=== PATIENT | male | born 1955 | race Caucasian/White ===

== ENCOUNTER 2017-07-17 08:44 | Outpatient (CLI) | payer MEDICAID ==
[~2017-07-17 08:44] MED LIST: CLIN-80 PO; FOLI1TAB16 PO; IBUP200C5 PO; LACT1CAP67 PO; LISI1TAB9 PO; LORA1TAB PO; METH2.5T55 PO; OMEG500C PO; WALKERFR
[2017-07-17 09:16] LABS: ABG BASE EXCESS -1.6 mmol/L (-2.0-3.0); ABG OXYGEN SATURATION 95.4 % (95-98); ABG PCO2 (T) 29.8 mmHg (35.0-48.0); ABG PH (T) 7.465 (7.350-7.450); ABG PO2 (T) 74.6 mmHg (83-108); ALLEN'S TEST Positive; FCOHb 0.6 % (0.5-1.5); FMetHb 0.1 % (0.3-1.12); FO2Hb 94.7 % (94-100); TOTAL HEMOGLOBIN 14.8 G/dl (14.0-18.0)
== END 2017-07-17 23:59 | disposition home or self-care (01) ==
LOC: RT 08:44
PROVIDERS: ATTEND Family Medicine
DX: R06.09 Other forms of dyspnea (principal); F17.200 Nicotine dependence, unspecified, uncomplicated
CPT/HCPCS: 36600; 82803; 85018; 94010; A6255; A6257

== ENCOUNTER 2018-01-24 05:42 | Emergency (ER) | payer MEDICAID ==
[~2018-01-24] VITALS: Ht 180.3 cm; Wt 82.0 kg
[~2018-01-24 05:42] MED LIST changes: -CLIN-80 PO; +CLIN300C85 PO
[2018-01-24 05:45] VITALS: BP 103/66
[2018-01-24] MEDS ORDERED: ketorolac trometh. 30mg/ml inj. IM ONE (07:20)
[2018-01-24 07:31] LABS: CLARITY,URINE CLEAR (Clear); COLOR,URINE YELLOW (Yellow); GLUCOSE, URINE NEGATIVE (Neg); KETONES,URINE NEGATIVE (Neg); LEUKOCYTE ESTERASE ,URINE NEGATIVE (Neg); NITRITES, URINE NEGATIVE (Neg); OCCULT BLOOD,URINE TRACE-LYSED (Neg); PH,URINE 5.5 (4.8-8.0); PROTEIN,URINE NEGATIVE (Neg); UROBILINOGEN,URINE 0.2 E.U/dL (0.2-1.0)
[2018-01-24 07:32] LABS: UA COLLECTION TYPE VOIDED
[2018-01-24 08:09] LABS: MUCUS STRANDS MODERATE /LPF (Neg); SQUAMOUS EPITHELIAL CELL,UR MODERATE /LPF (FEW)
[2018-01-24 08:12] LABS: BACTERIA,URINE FEW /HPF (Neg); RBC,URINE 0-2 /HPF (0-2); WBC,URINE 0-4 /HPF (0-4)
== END 2018-01-24 08:55 | disposition home or self-care (01) ==
LOC: ER 05:43
DX: S39.012A Strain of muscle, fascia and tendon of lower back, initial encounter (principal); I10 Essential (primary) hypertension; G89.29 Other chronic pain; R10.9 Unspecified abdominal pain; Z88.1 Allergy status to other antibiotic agents; Z88.8 Allergy status to other drugs, medicaments and biological substances; Z88.6 Allergy status to analgesic agent; Z79.899 Other long term (current) drug therapy; Z87.442 Personal history of urinary calculi; X58.XXXA Exposure to other specified factors, initial encounter; Y93.89 Activity, other specified; Y92.89 Other specified places as the place of occurrence of the external cause; Y99.8 Other external cause status
CPT/HCPCS: 81001; 96372; 99283; J1885

== ENCOUNTER 2018-07-08 18:38 | Emergency (ER) | payer MEDICAID ==
[~2018-07-08] VITALS: Ht 180.3 cm; Wt 93.2 kg
[~2018-07-08 18:38] MED LIST changes: +CLIN-96 PO; -CLIN300C85 PO
[2018-07-08 19:33] LABS: BASOPHILS # (AUTO) 0.1 X10'3 (0-0.2); BASOPHILS % (AUTO) 0.9 % (0-1); EOSINOPHILS # (AUTO) 0.1 X10'3 (0-0.9); EOSINOPHILS % (AUTO) 1.5 % (0-6); HEMATOCRIT 40.5 % (42.0-52.0); HEMOGLOBIN 13.4 g/dl (14.0-17.9); LYMPHOCYTES # (AUTO) 1.6 X10'3 (1.1-4.8); LYMPHOCYTES % (AUTO) 24.9 % (21-51); MEAN CORPUSCULAR HEMOGLOBIN 29.4 PG (27.0-31.0); MEAN CORPUSCULAR HGB CONC 33.1 g/dL (33.0-36.5); MEAN CORPUSCULAR VOLUME 88.9 FL (78-98); MEAN PLATELET VOLUME 8.9 FL (7.4-10.4); MONOCYTES # (AUTO) 0.4 X10'3 (0-0.9); MONOCYTES % (AUTO) 5.4 % (2-12); NEUTROPHILS # (AUTO) 4.4 X10'3 (1.8-7.7); NEUTROPHILS % (AUTO) 67.3 % (42-75); PLATELET COUNT 193 X10'3 (140-440); RED BLOOD COUNT 4.55 X10'6 (4.70-6.10); RED CELL DISTRIBUTION WIDTH 15.5 % (11.5-14.5); WHITE BLOOD COUNT 6.6 X10'3 (4.5-11.0)
[2018-07-08 19:43] LABS: ALANINE AMINOTRANSFERASE 19 U/L (12-78); ALBUMIN 3.6 G/DL (3.4-5.0); ALBUMIN/GLOBULIN RATIO 1.1 (1.1-1.5); ALKALINE PHOSPHATASE 75 IU/L (46-116); ANION GAP 8 (8-16); ASPARTATE AMINO TRANSFERASE 12 U/L (10-37); BILIRUBIN,TOTAL 0.3 MG/DL (0.1-1.0); BLOOD UREA NITROGEN 21 MG/DL (7-18); BUN/CREATININE RATIO 16.2 (5.4-32.0); CHLORIDE 105 MMOL/L (99-107); GLUCOSE 90 MG/DL (70-104); POTASSIUM 4.2 MMOL/L (3.5-5.1); SODIUM 140 MMOL/L (135-145); TOTAL CARBON DIOXIDE 26.8 MMOL/L (24-32); TOTAL PROTEIN 6.8 G/DL (6.4-8.2); eGFR 56 ML/MIN
[2018-07-08] MEDS ORDERED: diphenhydrAMINE 50 mg/ml inj IV ONE (20:35)
[2018-07-08] MEDS ORDERED: normal saline 1000ML IV soln IVB ONE (20:35)
[2018-07-08] MEDS ORDERED: ondansetron/PF 4mg/2ml inj IV ONE (20:35)
[2018-07-08] MEDS ORDERED: meclizine 12.5mg tablet PO ONE (21:40)
[2018-07-08] MEDS ORDERED: dexamethasone sod phosphate 10mg/ml inj IV STA (21:43)
[2018-07-08] MEDS ORDERED: MECL-111 PO (21:44)
[2018-07-08] MEDS ORDERED: LORazepam 2 mg/ml vial IV ONE (21:45)
[2018-07-08] MEDS ORDERED: proCHLORperazine 10 MG/2 ml inj IV ONE (21:45)
[2018-07-08 22:23] VITALS: BP 121/73
== END 2018-07-08 22:25 | disposition home or self-care (01) ==
LOC: ER 18:53
DX: R42 Dizziness and giddiness (principal); R51 Headache; I10 Essential (primary) hypertension; M54.2 Cervicalgia; G89.29 Other chronic pain; Z86.19 Personal history of other infectious and parasitic diseases; Z87.442 Personal history of urinary calculi; Z98.890 Other specified postprocedural states; Z88.1 Allergy status to other antibiotic agents; Z88.5 Allergy status to narcotic agent; Z88.8 Allergy status to other drugs, medicaments and biological substances; Z79.899 Other long term (current) drug therapy
CPT/HCPCS: 36415; 70450; 70486; 71045; 80053; 84484; 85025; 93005; 96361; 96374; 96375; 99284; J0780; J1100; J1200; J2060; J2405; J7030; J8597

== ENCOUNTER 2019-04-11 08:27 | Emergency (ER) | payer MEDICAID ==
[~2019-04-11] VITALS: Ht 180.3 cm; Wt 98.0 kg
[~2019-04-11 08:27] MED LIST changes: +CLIN-90 PO; -CLIN-96 PO; +LISI1TAB32 PO; -LISI1TAB9 PO; +MECL-111 PO
[2019-04-11 09:30] LABS: CLARITY,URINE CLEAR (Clear); COLOR,URINE STRAW (Yellow); GLUCOSE, URINE NEGATIVE (Neg); KETONES,URINE NEGATIVE (Neg); LEUKOCYTE ESTERASE ,URINE NEGATIVE (Neg); NITRITES, URINE NEGATIVE (Neg); OCCULT BLOOD,URINE TRACE-LYSED (Neg); PH,URINE 5.5 (4.8-8.0); PROTEIN,URINE NEGATIVE (Neg); UROBILINOGEN,URINE 0.2 E.U/dL (0.2-1.0)
[2019-04-11 09:31] LABS: UA COLLECTION TYPE CLN CATCH MIDSTREAM
[2019-04-11 09:55] VITALS: BP 127/68
[2019-04-11 10:09] LABS: MUCUS STRANDS FEW /LPF (Neg); SQUAMOUS EPITHELIAL CELL,UR FEW /LPF (FEW)
[2019-04-11 10:10] LABS: WBC,URINE 0-4 /HPF (0-4)
[2019-04-11 10:11] LABS: BACTERIA,URINE NONE SEEN /HPF (Neg); RBC,URINE 0-2 /HPF (0-2)
== END 2019-04-11 09:57 | disposition home or self-care (01) ==
LOC: ER 08:28
DX: K46.9 Unspecified abdominal hernia without obstruction or gangrene (principal); I10 Essential (primary) hypertension; G89.29 Other chronic pain; Z86.19 Personal history of other infectious and parasitic diseases; Z87.442 Personal history of urinary calculi; Z98.890 Other specified postprocedural states; Z88.1 Allergy status to other antibiotic agents; Z88.5 Allergy status to narcotic agent; Z88.8 Allergy status to other drugs, medicaments and biological substances; Z79.899 Other long term (current) drug therapy
CPT/HCPCS: 81001; 99283

== ENCOUNTER 2019-10-08 18:09 | Emergency (ER) | payer MEDICAID ==
[~2019-10-08] VITALS: Ht 180.3 cm; Wt 97.7 kg
[~2019-10-08 18:09] MED LIST changes: -CLIN-90 PO; +CLIN-97 PO; -MECL-111 PO; +MECL-159 PO
[2019-10-08 20:33] LABS: BASOPHILS # (AUTO) 0.1 X10'3 (0-0.2); BASOPHILS % (AUTO) 0.9 % (0-1); EOSINOPHILS # (AUTO) 0.1 X10'3 (0-0.9); EOSINOPHILS % (AUTO) 0.7 % (0-6); HEMATOCRIT 45.7 % (42.0-52.0); HEMOGLOBIN 15.5 g/dl (14.0-17.9); LYMPHOCYTES # (AUTO) 1.6 X10'3 (1.1-4.8); LYMPHOCYTES % (AUTO) 18.4 % (21-51); MEAN CORPUSCULAR HEMOGLOBIN 31.1 PG (27.0-31.0); MEAN CORPUSCULAR HGB CONC 33.9 g/dL (33.0-36.5); MEAN CORPUSCULAR VOLUME 91.5 FL (78-98); MEAN PLATELET VOLUME 9.6 FL (7.4-10.4); MONOCYTES # (AUTO) 0.9 X10'3 (0-0.9); MONOCYTES % (AUTO) 10.3 % (2-12); NEUTROPHILS % (AUTO) 69.7 % (42-75); PLATELET COUNT 151 X10'3 (140-440); WHITE BLOOD COUNT 8.6 X10'3 (4.5-11.0)
[2019-10-08 20:34] LABS: CLARITY,URINE SLIGHTLY CLOUDY (Clear); COLOR,URINE YELLOW (Yellow); GLUCOSE, URINE NEGATIVE (Neg); KETONES,URINE TRACE mg/dl (Neg); LEUKOCYTE ESTERASE ,URINE NEGATIVE (Neg); NITRITES, URINE NEGATIVE (Neg); OCCULT BLOOD,URINE NEGATIVE (Neg); PH,URINE 5.5 (4.8-8.0); PROTEIN,URINE TRACE mg/dl (Neg)
[2019-10-08 20:36] LABS: UA COLLECTION TYPE CLN CATCH MIDSTREAM
[2019-10-08 20:47] LABS: ALANINE AMINOTRANSFERASE 16 U/L (12-78); ALBUMIN 3.5 G/DL (3.4-5.0); ALBUMIN/GLOBULIN RATIO 0.9 (1.1-1.5); ALKALINE PHOSPHATASE 70 IU/L (46-116); ANION GAP 9 (8-16); ASPARTATE AMINO TRANSFERASE 19 U/L (10-37); BILIRUBIN,TOTAL 0.6 MG/DL (0.1-1.0); BLOOD UREA NITROGEN 26 MG/DL (7-18); BUN/CREATININE RATIO 13.7 (5.4-32.0); CALCIUM 8.7 MG/DL (8.5-10.1); CHLORIDE 107 MMOL/L (99-107); GLUCOSE 100 MG/DL (70-104); POTASSIUM 3.8 MMOL/L (3.5-5.1); SODIUM 142 MMOL/L (135-145); TOTAL CARBON DIOXIDE 25.7 MMOL/L (24-32); TOTAL PROTEIN 7.5 G/DL (6.4-8.2); eGFR 36 ML/MIN
[2019-10-08] MEDS ORDERED: AZIT-72 PO (21:11)
[2019-10-08 21:18] VITALS: BP 129/76
[2019-10-08 22:08] LABS: MUCUS STRANDS MANY /LPF (Neg); SQUAMOUS EPITHELIAL CELL,UR MODERATE /LPF (FEW)
[2019-10-08 22:09] LABS: BACTERIA,URINE FEW /HPF (Neg); RBC,URINE 0-2 /HPF (0-2)
== END 2019-10-08 21:16 | disposition home or self-care (01) ==
LOC: ER 18:09
DX: J18.9 Pneumonia, unspecified organism (principal); R50.9 Fever, unspecified; R06.02 Shortness of breath; I12.9 Hypertensive chronic kidney disease with stage 1 through stage 4 chronic kidney disease, or unspecified chronic kidney disease; N18.9 Chronic kidney disease, unspecified; M19.90 Unspecified osteoarthritis, unspecified site; G89.29 Other chronic pain; F17.200 Nicotine dependence, unspecified, uncomplicated; Z86.19 Personal history of other infectious and parasitic diseases; Z87.442 Personal history of urinary calculi; Z98.890 Other specified postprocedural states; Z88.6 Allergy status to analgesic agent; Z88.1 Allergy status to other antibiotic agents; Z88.5 Allergy status to narcotic agent; Z88.8 Allergy status to other drugs, medicaments and biological substances; Z79.2 Long term (current) use of antibiotics; Z79.899 Other long term (current) drug therapy
CPT/HCPCS: 36415; 71045; 80053; 81001; 85025; 87088; 99284

== ENCOUNTER 2021-06-04 14:06 | Emergency (ER) | payer MEDICARE, MEDICAID ==
[~2021-06-04] VITALS: Ht 180.3 cm; Wt 100.0 kg
[~2021-06-04 14:06] MED LIST changes: -CLIN-97 PO; -FOLI1TAB16 PO; +FOLI1TAB27 PO; -IBUP200C5 PO; -LACT1CAP67 PO; +LACT1CAP77 PO; -LISI1TAB32 PO; +LISI1TAB49 PO; -MECL-159 PO
[2021-06-04 14:35] VITALS: BP 119/90
[2021-06-04] MEDS ORDERED: SOTROVIMAB 500mg injection 500 MG in normal saline 100ml IV soln 100 ML IV ONE (16:05)
[2021-06-04] MEDS ORDERED: PRED10TA23 PO (16:48)
[2021-06-04] MEDS ORDERED: BUDE180A INH (16:48)
[2021-06-04] MEDS ORDERED: ALBU6.7H9 INH (16:48)
[2021-06-04] MEDS ORDERED: AZIT500T PO (16:48)
== END 2021-06-04 18:13 | disposition home or self-care (01) ==
LOC: ER 14:06
DX: U07.1 COVID-19 (principal); J12.82 Pneumonia due to coronavirus disease 2019; I10 Essential (primary) hypertension; M19.90 Unspecified osteoarthritis, unspecified site; G89.29 Other chronic pain; G47.30 Sleep apnea, unspecified; Z87.19 Personal history of other diseases of the digestive system; Z87.442 Personal history of urinary calculi; Z88.1 Allergy status to other antibiotic agents; Z88.8 Allergy status to other drugs, medicaments and biological substances; Z79.2 Long term (current) use of antibiotics; Z79.899 Other long term (current) drug therapy
CPT/HCPCS: 71045; 99284; J3490; M0247; Q0247